=== PATIENT | male | born 1970 | race Caucasian/White ===

== ENCOUNTER 2016-12-10 06:24 | Day surgery (SDC) | payer OTHER ==
[~2016-12-10 06:24] MED LIST: FENTANYL 250 MCG/5 ML AMP IV PRN; LACTATED RINGERS 1,000 ML IV SCH; LIDOCAINE Viscous 2% 15 ML UDCUP PO PRN; MIDAZOLAM HCL 5 MG/5 ML VIAL IV PRN
[2016-12-10] MEDS ORDERED: FENTANYL 100 MCG/2 ML VIAL ONE ×2 (06:28→06:46)
[2016-12-10] MEDS ORDERED: MIDAZOLAM HCL 5 MG/5 ML VIAL ONE (06:28)
[2016-12-10] MEDS ORDERED: LIDOCAINE Viscous 2% 15 ML UDCUP ONE (06:28)
[2016-12-10] MEDS ORDERED: IV START KIT ONE (06:31)
[2016-12-10 11:47] LABS: HELICOBACTER PYLORII DETECTION NEGATIVE (NEGATIVE)
--- NOTE | 2016-12-14 16:23 | SURGPATH ---
[facility] [address] [place] [id number] Patient Name: NEO WYATT JR MR#: [id number] : 1970 Gender: M Specimen #: [id number] Collected: 12/10/2016 Received: 12/13/2016 Reported: 12/14/2016 Submitting Phys: KRYSTIN FULLER Copy To Phys: [facility] NEVIN FERNANDEZ Addendum Present Clinical History / Pre-Operative Diagnosis: DYSPHAGIA; NAUSEA; VOMITING; RULE OUT GASTRITIS Specimen Source / Surgical Procedure Performed: ANTRAL Interpretation: STOMACH, BIOPSY: - MILD CHRONIC ANTRAL GASTRITIS WITHOUT ACTIVITY -HELICOBACTER IMMUNOSTAIN PENDING, TO FOLLOW IN A SUPPLEMENTAL REPORT Electronically Signed Out Josie Blankenship M.D. Addendum Date Reported: 12/15/2016 Signed Out Addendum Comment Immunohistochemical staining for Helicobacter is performed on the antral biopsy. No Helicobacter organisms are identified. The control material stains appropriately. plv/12/15/2016 Electronically Signed Out Sarah Marroquin M.D. Gross Description: The specimen is received in a formalin filled container labeled with the patient's name and "antral". A single villa biopsy is 0.5 cm. Totally embedded in one cassette. Marlene Colmenares Microscopic Description: Sections show gastric antral and oxyntic mucosa with overall intact architecture. Minimal chronic inflammation is seen without active inflammation. No Helicobacter organisms are seen on routine stain, pending immunostain. No dysplasia or malignancy is seen. (Analyte-specific reagents (ASR) are used in many laboratory tests necessary for standard medical care and generally do not require FDA approval. This test was developed and its performance characteristics determined by [facility]. It has not been cleared or approved by the U.S. Food and Drug Administration. [facility] is certified under the Clinical Laboratory Improvement Amendments of 1988 as qualified to perform high complexity clinical laboratory testing. All controls stain as expected.) 1: 11776, 58503 K29.30
== END 2016-12-10 08:30 | disposition home or self-care (01) ==
LOC: SDC 06:24
PROVIDERS: ATTEND Internal Medicine Gastroenterology
PROC: 0D748ZZ Dilation of Esophagogastric Junction, Via Natural or Artificial Opening Endoscopic (ICD-10-PCS; principal; 2016-12-10)
PROC: 0DB68ZX Excision of Stomach, Via Natural or Artificial Opening Endoscopic, Diagnostic (ICD-10-PCS; 2016-12-10)
DX: K22.2 Esophageal obstruction (principal); K29.50 Unspecified chronic gastritis without bleeding; K29.80 Duodenitis without bleeding; I10 Essential (primary) hypertension; Z88.8 Allergy status to other drugs, medicaments and biological substances
CPT/HCPCS: 43249; 43239; 87081; J3010 ×2; J2250; A9270; J7120